=== PATIENT | female | born 1985 | race Caucasian/White ===

== ENCOUNTER 2017-12-31 17:06 | Emergency (ER) | payer OTHER ==
[2017-12-31 17:31] VITALS: BP 125/79; PULSE 77; TEMP 98.2; BMI 24.6
--- NOTE | 2017-12-31 17:31 | PDOC ---
Rapid Medical Evaluation Time Seen by Provider: 12/31/17 17:29 Medical Evaluation: Allergies Allergy/AdvReac Type Severity Reaction Status Date / Time ondansetron HCl AdvReac Verified 12/31/17 17:27 [From Zofran (as hydrochloride)] 12/31/17 17:29 The patient presents with a chief complaint of: (+) . LMP 11/14/17. The vaginal area feels uncomfortable. Reports white discharge. No bleeding or abdominal pain. I have performed a brief in-person evaluation of this patient; Pertinent physical exam findings: ambulatory, in no respiratory distress I have ordered the following: UA, UC The patient will proceed to the ED for further evaluation.
--- NOTE | 2017-12-31 18:31 | PDOC ---
History of Present Illness - General Chief Complaint: Vaginal Sxs Stated Complaint: VAGINAL DISCOMFORT Time Seen by Provider: 12/31/17 17:29 History Source: Patient Exam Limitations: No Limitations - History of Present Illness Initial Comments: CHIEF COMPLAINT: 32 y/o female, approximately 6 weeks c/o thick, white vaginal discharge with vaginal irritation. HISTORY OF PRESENT ILLNESS: The patient states in prior pregnancies she's had yeast infections early in the because of hormone changes. She states this feels exactly the same. She denies f/c, n/v/d, hematuria, dysuria, vaginal bleeding, abd pain. Vital signs on arrival are within normal limits. REVIEW OF SYSTEMS: GENERAL/CONSTITUTIONAL: No fever/chills. No weakness. No weight change. GASTROINTESTINAL: No abd pain, nausea, vomiting, diarrhea. GENITOURINARY: No dysuria, frequency, or change in urination. MUSCULOSKELETAL: No joint or muscle swelling or pain. No neck or back pain. + thick, white vaginal discharge. SKIN: No rash or easy bruising. NEUROLOGIC: No headache, vertigo, loss of consciousness, or loss of sensation. PHYSICAL EXAM: GENERAL: The patient is awake, alert, and fully oriented, in no acute distress. ABDOMEN: Soft, non-distended, non-tender even to deep palpation, no hepatomegaly or splenomegaly, no masses. VAGINAL: Irritated, erythematous labia minora with white, cottage cheese appearing vaginal discharge, consistent with yeast infection. EXTREMITIES: Normal range of motion, no edema. NEUROLOGICAL: Normal speech, normal gait. CN II-XII grossly intact. SKIN: Warm, dry, normal turgor, no rashes or lesions noted. Past History - Past Medical History Allergies/Adverse Reactions: Allergies Allergy/AdvReac Type Severity Reaction Status Date / Time ondansetron HCl AdvReac Verified 12/31/17 17:27 [From Zofran (as hydrochloride)] Home Medications: Ambulatory Orders Miconazole Nitrate [Monistat 3] 1 each VG HS #1 kit 12/31/17 COPD: No Other medical history: DENIES - Immunization History Immunization Up to Date: Yes - Suicide/Smoking/Psychosocial Hx Smoking History: Never smoked Hx Alcohol Use: No Drug/Substance Use Hx: No Substance Use Type: None *Physical Exam - Vital Signs Last Vital Signs Temp Pulse Resp BP Pulse Ox 98.2 F 77 16 125/79 100 12/31/17 17:28 12/31/17 17:28 12/31/17 17:28 12/31/17 17:28 12/31/17 17:28 Medical Decision Making - Medical Decision Making A/P: 32 y/o, 6 week female with yeast infection. Sent rx for monistat. will provide OB referral. Pt instructed to return to the ER with any worsening or concerning symptoms. The patient verbalizes understanding of all instructions, has no further questions and is awaiting discharge. *DC/Admit/Observation/Transfer Diagnosis at time of Disposition: Yeast infection - Discharge Dispostion Disposition: HOME Condition at time of disposition: Good - Prescriptions Prescriptions: Miconazole Nitrate [Monistat 3] 1 each VG HS #1 kit - Referrals Referrals: Nadira Haque MD [Staff Physician] - - Patient Instructions Printed Discharge Instructions: DI for Vaginal Yeast Infection Additional Instructions: Discharge Instructions: -A prescription for monistat was sent to your pharmacy -Please return to the ER with any worsening or concerning symptoms. - Post Discharge Activity
[2017-12-31 18:52] LABS: URINE APPEARANCE SLCLOUDY; URINE BILIRUBIN NEGATIVE (<2.0 mg/dL); URINE BLOOD 1+ (NEGATIVE); URINE COLOR LTYELLOW; URINE GLUCOSE (UA) NEGATIVE (NEGATIVE); URINE KETONE NEGATIVE (NEGATIVE); URINE NITRITE NEGATIVE (NEGATIVE); URINE PROTEIN NEGATIVE (NEGATIVE); URINE UROBILINOGEN NEGATIVE mg/dL (0.2-1.0)
[2017-12-31 18:58] LABS: URINE LEUK ESTERASE 3+ (NEGATIVE)
[2017-12-31 19:04] LABS: EPI CELLS RARE /HPF (FEW); URINE BACTERIA RARE /hpf (NONE SEEN); URINE MUCUS RARE
== END 2017-12-31 18:43 | disposition home or self-care (01) ==
LOC: JERFT 17:06
DX: O26.891 Other specified pregnancy related conditions, first trimester (principal); O98.811 Other maternal infectious and parasitic diseases complicating pregnancy, first trimester; B37.3 Candidiasis of vulva and vagina; Z3A.01 Less than 8 weeks gestation of pregnancy
CPT/HCPCS: 36415; 81003; 81015; 87086; 87491; 87591; 99281-25

== ENCOUNTER 2018-01-14 20:57 | Emergency (ER) | payer OTHER ==
--- NOTE | 2018-01-14 21:04 | PDOC ---
Rapid Medical Evaluation Time Seen by Provider: 01/14/18 21:03 Medical Evaluation: Allergies Allergy/AdvReac Type Severity Reaction Status Date / Time ondansetron HCl AdvReac Verified 12/31/17 17:27 [From Zofran (as hydrochloride)] 01/14/18 21:03 I have performed a brief in-person evaluation of this patient. The patient presents with a chief complaint of: 8 wks , vomiting ~10 episodes today, nonstop, 2 episodes diarrhea, denies vaginal bleeding/cramping, allergy to zofran Pertinent physical exam findings: well appearing I have ordered the following: labs The patient will proceed to the ED for further evaluation. Discharge Disposition - Diagnosis Vomiting during - Referrals - Patient Instructions - Post Discharge Activity
[2018-01-14 21:05] VITALS: BP 143/72; PULSE 81; TEMP 98.2; BMI 24.6
[2018-01-14 21:29] LABS: BASO % 0.3 % (0-2.0); EOS % 0.3 % (0-4.5); HEMATOCRIT 42.7 % (32.4-45.2); HEMOGLOBIN 14.7 GM/dL (10.7-15.3); MCH 28.4 pg (25.7-33.7); MCHC 34.4 g/dl (32.0-36.0); MEAN CELL VOLUME 82.6 fl (80-96); MEAN PLT VOLUME 8.9 fl (7.5-11.1); MONO % 5.8 % (3.8-10.2); NEUT % 84.6 % (42.8-82.8); PLATELET COUNT 299 K/MM3 (134-434); RBC 5.17 M/mm3 (3.60-5.2); RDW 13.5 % (11.6-15.6); WHITE BLOOD COUNT 18.6 K/mm3 (4.0-10.0)
[2018-01-14] MEDS ORDERED: METOCLOPRAMIDE HCL INJECTION 10 MG/2 ML VIAL IVPB ONE (21:40)
[2018-01-14] MEDS ORDERED: SODIUM CHLORIDE 1,000 ML IV STA (21:40)
[2018-01-14 21:54] LABS: ALBUMIN 4.2 g/dl (3.4-5.0); ALK PHOS 65 U/L (45-117); ANION GAP 10 (8-16); BILIRUBIN,TOTAL 0.5 mg/dL (0.2-1.0); BLOOD UREA NITROGEN 11 mg/dL (7-18); CALCIUM 9.7 mg/dL (8.5-10.1); CHLORIDE 107 mmol/L (98-107); CO2 20 mmol/L (21-32); CREATININE 0.8 mg/dL (0.55-1.02); GLUCOSE,RANDOM 94 mg/dL (74-106); POTASSIUM 3.9 mmol/L (3.5-5.1); SGOT/AST 13 U/L (15-37); SGPT/ALT 26 U/L (12-78); SODIUM 137 mmol/L (136-145); TOT PROT 8.7 g/dl (6.4-8.2)
--- NOTE | 2018-01-14 21:55 | PDOC ---
History of Present Illness - General Chief Complaint: Nausea/Vomiting Stated Complaint: SICK, VOMITING, 9 WEEKS Time Seen by Provider: 01/14/18 21:03 - History of Present Illness Initial Comments: 01/14/18 23:34 32-year-old female complaining of nausea vomiting and diarrhea since this morning with inability to tolerate by mouth all day. Patient is 8 weeks . Denies vaginal bleeding, vaginal discharge, abdominal pain. Denies fever/chills, urinary symptoms Past History - Past Medical History Allergies/Adverse Reactions: Allergies Allergy/AdvReac Type Severity Reaction Status Date / Time ondansetron HCl AdvReac Verified 01/14/18 21:05 [From Zofran (as hydrochloride)] Home Medications: Ambulatory Orders Miconazole Nitrate [Monistat 3] 1 each VG HS #1 kit 12/31/17 Cephalexin Monohydrate [Keflex -] 500 mg PO BID #20 capsule 01/15/18 Doxylamine Succinate/Vit B6 [Diclegis Dr 10-10 mg Tablet] 1 each PO HS #7 tablet. 01/15/18 COPD: No Other medical history: denies - Immunization History Immunization Up to Date: Yes - Suicide/Smoking/Psychosocial Hx Smoking History: Never smoked Hx Alcohol Use: No Drug/Substance Use Hx: No Substance Use Type: None Review of Systems - Review of Systems Able to Perform ROS?: Yes Is the patient limited Korean proficient: No Constitutional: No: Symptoms Reported, See HPI, Chills, Diaphoresis, Fever, Loss of Appetite, Malaise, Night Sweats, Weakness, Weight Stable, Unintentional Wgt. Loss, Unexplained wgt Loss, Other Respiratory: No: Symptoms reported, See HPI, Cough, Orthopnea, Shortness of Breath, SOB with Exertion, SOB at Rest, Stridor, Wheezing, Productive cough, Hemoptysis, Other ABD/GI: Yes: Diarrhea, Nausea, Vomiting, Abdominal cramping. No: Symptoms Reported, See HPI, Abdominal Distended, Abd. Pain w/ defecation, Blood Streaked Bowels, Constipated, Difficulty Swallowing, Poor Appetite, Poor Fluid Intake, Rectal Bleeding, Indigestion, Tarry Stools, Other : No: Symptoms Reported, See HPI, Burning, Dysuria, Discharge, Frequency, Flank Pain, Hematuria, Incontinence, Pain, Urgency, Testicular Mass, Testicular Swelling, Lesions, Testicular Pain, Other *Physical Exam - Vital Signs Last Vital Signs Temp Pulse Resp BP Pulse Ox 98.2 F 81 20 143/72 99 01/14/18 21:03 01/14/18 21:03 01/14/18 21:03 01/14/18 21:03 01/14/18 21:03 - Physical Exam General Appearance: Yes: Appropriately Dressed Respiratory/Chest: positive: Lungs Clear, Normal Breath Sounds Cardiovascular: positive: Regular Rhythm, Regular Rate Gastrointestinal/Abdominal: positive: Normal Bowel Sounds, Soft. negative: Tender Musculoskeletal: positive: Normal Inspection Extremity: positive: Normal Capillary Refill, Normal Inspection, Normal Range of Motion Integumentary: positive: Normal Color, Dry, Warm Neurologic: positive: Fully Oriented, Alert, Normal Mood/Affect ED Treatment Course - LABORATORY CBC & Chemistry Diagram: 01/14/18 21:20 01/14/18 21:21 - ADDITIONAL ORDERS Additional order review: 01/14/18 21:20 RBC 5.17 MCV 82.6 MCHC 34.4 RDW 13.5 MPV 8.9 Neutrophils % 84.6 H D Lymphocytes % 9.0 D Monocytes % 5.8 Eosinophils % 0.3 D Basophils % 0.3 Medical Decision Making - Medical Decision Making 01/14/18 23:41 hyperemesis gravidum P: IVF CBC CMP UA *DC/Admit/Observation/Transfer Diagnosis at time of Disposition: Vomiting during UTI (urinary tract infection) Qualifiers: Urinary tract infection type: acute cystitis Hematuria presence: without hematuria Qualified Code(s): N30.00 - Acute cystitis without hematuria - Discharge Dispostion Disposition: HOME - Prescriptions Prescriptions: Cephalexin Monohydrate [Keflex -] 500 mg PO BID #20 capsule Doxylamine Succinate/Vit B6 [Diclegis Dr 10-10 mg Tablet] 1 each PO HS #7 tablet.dr - Referrals - Patient Instructions Printed Discharge Instructions: Hyperemesis Gravidarum Additional Instructions: take diclegis as prescribed follow up with your doctor as soon as possible take cephalexin as prescribed return to the ED if symptoms worsen - Post Discharge Activity Forms/Work/School Notes: Back to Work
[2018-01-14] MEDS ORDERED: METOCLOPRAMIDE HCL INJECTION 10 MG/2 ML VIAL ONE (22:19)
[2018-01-15 01:11] LABS: URINE APPEARANCE CLOUDY; URINE BILIRUBIN NEGATIVE (<2.0 mg/dL); URINE BLOOD NEGATIVE (NEGATIVE); URINE COLOR YELLOW; URINE GLUCOSE (UA) NEGATIVE (NEGATIVE); URINE KETONE 1+ (NEGATIVE); URINE NITRITE NEGATIVE (NEGATIVE); URINE PROTEIN NEGATIVE (NEGATIVE); URINE UROBILINOGEN NEGATIVE mg/dL (0.2-1.0)
[2018-01-15 01:15] LABS: URINE LEUK ESTERASE 3+ (NEGATIVE)
[2018-01-15 01:18] LABS: EPI CELLS MODERATE /HPF (FEW); URINE BACTERIA RARE /hpf (NONE SEEN); URINE HYALINE CAST 3 /lpf; URINE MUCUS MODERATE
[2018-01-15] MEDS ORDERED: CEPHALEXIN MONOHYDRATE 500 MG CAPSULE (UD) PO ONE (01:20)
[2018-01-15] MEDS ORDERED: CEPHALEXIN MONOHYDRATE 250 MG CAPSULE (FP) ONE (01:43)
== END 2018-01-15 01:45 | disposition home or self-care (01) ==
LOC: JER 20:57
PROC: 3E033GC Introduction of Other Therapeutic Substance into Peripheral Vein, Percutaneous Approach (ICD-10-PCS; principal; 2018-01-14)
PROC: 3E033GC Introduction of Other Therapeutic Substance into Peripheral Vein, Percutaneous Approach (ICD-10-PCS; 2018-01-14)
DX: O26.891 Other specified pregnancy related conditions, first trimester (principal); O21.0 Mild hyperemesis gravidarum; Z3A.09 9 weeks gestation of pregnancy; O23.31 Infections of other parts of urinary tract in pregnancy, first trimester
CPT/HCPCS: 36415; 80053; 81003; 81015; 85025; 87086; 99283-25; J7030